=== PATIENT | female | born 1965 | race Caucasian/White ===

== ENCOUNTER 2016-06-18 22:04 | Emergency (ER) | payer OTHER ==
[~2016-06-18 22:04] MED LIST: ALPRAZOLAM1 MG PO; ESCITALOPRAM20 MG PO; FLUVIRIN 245 MCG/0.1 IM; METOPROLOL SUC100 MG PO; ZOLPIDEM TARTRA10 MG PO
--- NOTE | 2016-06-18 22:17 | ED PSYCHIATRIC COMPLAINT ---
History of Present Illness General Chief Complaint: ETOH/Drug Related Complaint Stated Complaint: BIBA FOR ETOH Source: patient Exam Limitations: intoxication Vital Signs & Intake/Output Vital Signs & Intake/Output Vital Signs Date Time Temp Pulse Resp B/P Pulse O2 O2 Flow FiO2 Ox Delivery Rate 06/18 2325 97.5 84 18 158/77 99 Room Air 06/18 2320 100 Room Air Allergies Coded Allergies: NO KNOWN ALLERGIES (NO) (07/14/10) Reconcile Medications Alprazolam 1 MG TABLET 1 TAB PO BID PRN ANXIETY (Reported) Escitalopram Oxalate 20 MG TABLET 1 TAB PO DAILY ANXIETY/DEPRESSION (Reported ) FLU VACCINE [id number](4YR+)/PF (Fluvirin [id number] Syringe) 45 MCG (15 MCG X 3)/ 0.5 ML SYRINGE 0.5 ML IM ONCE VACCINE (Reported) Metoprolol Succinate 100 MG TAB.ER.24H 1 TAB PO DAILY BP (Reported) Zolpidem Tartrate 10 MG TAB 1 TAB PO QPM PRN SLEEP (Reported) Triage Nurses Notes Reviewed? yes HPI: Patient presents for evaluation of alcohol intoxication. Patient states that somebody at a [employer] called the police because they were concerned about her level of intoxication. The patient has no complaint currently. Unfortunately, she is under the influence of alcohol, and is a bit sarcastic and history taking has been challenging. Past History Travel History Traveled to [place] past 21 day No Medical History Any Pertinent Medical History? see below for history Surgical History Surgical History: non-contributory Psychosocial History Who do you live with Patient/Self What is your primary language Upper Sorbian Family History Hx Contributory? No Review of Systems Review of Systems Constitutional: Reports: no symptoms. EENTM: Reports: no symptoms. Respiratory: Reports: no symptoms. Cardiovascular: Reports: no symptoms. GI: Reports: no symptoms. Genitourinary: Reports: no symptoms. Musculoskeletal: Reports: no symptoms. Skin: Reports: no symptoms. Neurological/Psychological: Reports: no symptoms. Hematologic/Endocrine: Reports: no symptoms. Immunologic/Allergic: Reports: no symptoms. All Other Systems: Reviewed and Negative Physical Exam Physical Exam General Appearance: see below Neurological/Psychiatric: see below Comments: General: Alert, calm, cooperative, EtOH like odor, appears clinically intoxicated Head: Normocephalic, atraumatic Eyes: Normal inspection, no nystagmus, EOMI Ears: Normal inspection Nose: Normal inspection Throat: Moist mucosa Neck: Supple, no goiter Heart: Regular rate and rhythm, no murmurs rubs or gallops Lungs: Clear to auscultation bilaterally with good air entry Abdomen: Soft nontender nondistended, normal bowel sounds Chest: Nontender Extremities: Normal range of motion grossly, mild tremors present, no cyanosis clubbing or edema of the upper extremities Neurologic: cranial nerves II through XII grossly intact, speech slurred, gait unsteady Psychiatric: No apparent delusions or hallucinations, no pressured speech or thought blocking SAD PERSONS Done? patient not suicidal Progress Differential Diagnosis: drug intoxication Plan of Care: Orders Procedure Date/time Status Continuous Observation Monitor 06/19 0000 Active Departure Departure Disposition: HOME OR SELF CARE Condition: Stable Clinical Impression Primary Impression: Alcohol intoxication Qualifiers: Complication of substance-induced condition: uncomplicated Qualified Code: F10.120 - Alcohol abuse with intoxication, uncomplicated Referrals: JULIA AGUILERA,EZRA Additional Instructions: Try to cut down on your alcohol intake. Follow-up with a detox program or your primary care physician this week. Return if any concerns or sudden worsening. Departure Forms: Customer Survey General Discharge Information
[2016-06-19 06:59] VITALS: BP 143/78
== END 2016-06-19 07:32 ==
LOC: ERH 22:04
DX: F10.129 Alcohol abuse with intoxication, unspecified (principal)

== ENCOUNTER 2017-06-11 20:10 | Emergency (ER) | payer OTHER ==
--- NOTE | 2017-06-11 20:18 | ED PSYCHIATRIC COMPLAINT ---
History of Present Illness General Chief Complaint: ETOH/Drug Related Complaint Stated Complaint: ETOH Source: patient, EMS, police Exam Limitations: no limitations Vital Signs & Intake/Output Vital Signs & Intake/Output Vital Signs Date Time Temp Pulse Resp B/P B/P Pulse O2 O2 Flow FiO2 Mean Ox Delivery Rate 06/12 1249 98.0 78 20 145/72 98 Room Air 06/12 1049 97.2 82 18 162/83 99 06/12 0751 96.7 85 18 160/83 96 06/12 0546 98.6 81 16 140/79 95 Room Air 06/12 0321 97.4 80 18 124/68 95 Room Air 06/11 2322 97.1 80 18 150/80 98 Room Air 06/11 2134 96 Room Air 06/11 2030 97.5 103 16 139/66 97 Room Air ED Intake and Output 06/12 0000 06/11 1200 Intake Total 100 Output Total Balance 100 Intake, Oral 100 Allergies Coded Allergies: NO KNOWN ALLERGIES (NO) (07/14/10) Reconcile Medications Alprazolam 1 MG TABLET 1 TAB PO BID PRN ANXIETY (Reported) Escitalopram Oxalate 20 MG TABLET 1 TAB PO DAILY ANXIETY/DEPRESSION (Reported ) FLU VACCINE [id number](4YR+)/PF (Fluvirin [id number] Syringe) 45 MCG (15 MCG X 3)/ 0.5 ML SYRINGE 0.5 ML IM ONCE VACCINE (Reported) Metoprolol Succinate 100 MG TAB.ER.24H 1 TAB PO DAILY BP (Reported) Zolpidem Tartrate 10 MG TAB 1 TAB PO QPM PRN SLEEP (Reported) Triage Nurses Notes Reviewed? yes Onset: Gradual Duration: day(s): Timing: recent history Severity: moderate Associated Symptoms: anxiety, suicidal ideation HPI: 51 yo woman on a police peer presents with tearfulness in the context of drinking "30 drinks tonight... and I took 14 extra ambien's." She denies active suicidality but reports grieving over her "who is an asshole." She denies HI/seizures. (Fabi AGUILERA,Robert Osullivan) Past History Travel History Traveled to [place] past 21 day No Medical History Any Pertinent Medical History? see below for history Neurological: NONE EENT: NONE Cardiovascular: NONE Respiratory: NONE Gastrointestinal: GERD Hepatic: NONE Renal: NONE Musculoskeletal: NONE Psychiatric: anxiety Endocrine: NONE Surgical History Surgical History: non-contributory Psychosocial History Who do you live with Patient/Self What is your primary language Lao Family History Hx Contributory? No (Fabi AGUILERA,Robert Osullivan) Review of Systems Review of Systems Constitutional: Reports: no symptoms. EENTM: Reports: no symptoms. Respiratory: Reports: no symptoms. Cardiovascular: Reports: no symptoms. GI: Reports: no symptoms. Genitourinary: Reports: no symptoms. Musculoskeletal: Reports: no symptoms. Skin: Reports: no symptoms. Neurological/Psychological: Reports: no symptoms. Hematologic/Endocrine: Reports: no symptoms. Immunologic/Allergic: Reports: no symptoms. All Other Systems: Reviewed and Negative (Fabi AGUILERA,Robert Osullivan) Physical Exam Physical Exam General Appearance: well developed/nourished, mild distress Head: atraumatic Eyes: Bilateral: normal appearance. Ears, Nose, Throat: normal pharynx, normal ENT inspection, hearing grossly normal Neck: normal inspection, supple Respiratory: normal breath sounds Cardiovascular: regular rate/rhythm Gastrointestinal: soft, non-tender Extremities: normal range of motion Neurological/Psychiatric: no motor/sensory deficits, awake, agitated Appearance/Memory/Insight: disheveled, impaired insight Behavoir/Eye Contact/Speech: slurred speech Thoughts/Hallucinations: no apparent hallucination Skin: intact, normal color, warm/dry SAD PERSONS SAD PERSONS Response Value Age <19 or >45 years? yes 1 Depression/Hopelessness? yes 2 Excessive Ethanol/Drug Use? yes 1 Rational Thinking Loss? yes 2 Social Support? has no support 1 Total 7 SAD PERSONS Done? yes (Fabi AGUILERA,Robert Osullivan) Progress Differential Diagnosis: drug intoxication, depression Plan of Care: Orders Procedure Date/time Status Heart Healthy Diet 06/12 B Active Continuous Observation Monitor 06/12 1900 Active Continuous Observation Monitor 06/12 1500 Active Continuous Observation Monitor 06/12 1100 Active Continuous Observation Monitor 06/12 0700 Active Continuous Observation Monitor 06/12 0458 Active ED CRISIS PSYCH CONSULT 06/12 0458 Active EKG 06/12 2215 Active Add-on Test (ER Only) 06/11 2214 Active URINE DRUGS OF ABUSE 06/11 2105 Complete URINALYSIS 06/11 2105 Complete ETHANOL 06/11 2105 Complete COMPREHENSIVE METABOLIC PANEL 06/11 2105 Complete CBC WITHOUT DIFFERENTIAL 06/11 2105 Complete ACETOMINOPHEN 03/24 2100 Complete SALICYLATE 06/11 2099 Complete Laboratory Tests 06/11/172123: Urine Opiates Screen < 100, Methadone Screen 43, Barbiturate Screen < 60, Ur Phencyclidine Scrn < 6.00, Amphetamines Screen < 100, U Benzodiazepines Scrn 300 H, Urine Cocaine Screen < 50, Urine Cannabis Screen < 5.00, Urinalysis LIGHT H , Urine Color YEL, Urine Clarity HAZY H, Urine pH 6.5, Ur Specific [place] <= 1.005, Urine Protein NEG, Urine Ketones NEG, Urine Nitrite NEG, Urine Bilirubin NEG, Urine Urobilinogen 0.2, Ur Leukocyte Esterase NEG, Ur Microscopic SEDIMENT EXAMINED, Urine RBC 3-5, Urine WBC RARE, Ur Epithelial Cells PACKD H, Urine Hemoglobin LARGE H, Urine Glucose NEG 06/11/172099: Anion Gap 17 H, Estimated GFR > 60, BUN/Creatinine Ratio 12.5, Glucose 105 H, Calcium 10.0, Total Bilirubin 0.5, AST 26, ALT 22, Alkaline Phosphatase 73, Total Protein 6.9, Albumin 4.0, Globulin 2.9, Albumin/Globulin Ratio 1.4, CBC w Diff NO MAN DIFF REQ, RBC 4.54, MCV 93.0, MCH 31.6 H, MCHC 34.0, RDW 13.2, MPV 9.4, Gran % 50.7, Lymphocytes % 39.5, Monocytes % 8.1, Eosinophils % 1.3, Basophils % 0.4, Absolute Granulocytes 4.4, Absolute Lymphocytes 3.4, Absolute Monocytes 0.7 H, Absolute Eosinophils 0.1, Absolute Basophils 0, Salicylates < 1.0, Acetaminophen < 10.0 L, Serum Alcohol 256.0 Initial ED EKG: nsr, nonspecific changes... no sig change from prior. Hand-Off Endorsed To: Aleksey De La Rosa MD Endorsed Time: 0700 Pending: consult (Fabi AGUILERA,Robert Osullivan) Comments: Cleared by psychiatry for discharge. (Aleksey De La Rosa MD) Departure Departure Condition: Stable Clinical Impression Primary Impression: Alcohol intoxication Secondary Impressions: Depression Referrals: Brandyn Flanagan MD (PCP/Family) (Robert Dunlap MD) Departure Time of Disposition: 1238 Disposition: HOME OR SELF CARE Additional Instructions: Follow up with the recommendations of the soap worker. Departure Forms: General Discharge Information (Rj AGUILERA,Aleksey)
[2017-06-11 21:31] LABS: ABSOLUTE BASOPHIL COUNT 0 /CUMM (0.0-0.2); ABSOLUTE EOSINOPHIL COUNT 0.1 /CUMM (0.0-0.7); ABSOLUTE GRANULOCYTE CT 4.4 /CUMM (1.4-6.5); ABSOLUTE LYMPH COUNT 3.4 /CUMM (1.2-3.4); ABSOLUTE MONOCYTE COUNT 0.7 /CUMM (0.10-0.60); BASOPHIL % 0.4 % (0.0-2.0); EOSINOPHIL % 1.3 % (0-5); GRANULOCYTE % 50.7 % (42.2-75.2); HEMATOCRIT 42.2 % (37-47); MEAN CORPUSCULAR HGB 31.6 PG (27.0-31.0); MEAN PLATELET VOLUME 9.4 FL (7.4-10.4); PLATELET COUNT 322 /CUMM (130-400); RBC DISTRIBUTION WIDTH 13.2 % (11.5-14.5); RED BLOOD CELL CT 4.54 /CUMM (4.20-5.40); WHITE BLOOD CELL COUNT 8.7 /CUMM (4.8-10.8)
[2017-06-12 12:49] VITALS: BP 145/72
--- NOTE | 2017-06-12 15:42 | ED PSYCH CRISIS CONSULTATION ---
Crisis Consult Basic Assessment Date of Consult: 06/12/17 Responsible Person/Accompanied By: Patient arrived on a PEER Insurance Authorization: Insurance #1: Insurance name: LORRI NOBLE Phone number: Policy number: [id number] Group number: [id number] Authorization number: ED Provider: Patient's ED Provider: Aleksey De La Rosa MD Primary Care Physician: Patient's PCP: Brandyn Flanagan MD PCP's Current Psychiatrist: Cassidy Cueto MD Chief Complaint: ETOH/Drug Related Complaint Patient's Quote: "I know...I drank...my didnt come home and I was pissed." Present Illness: Patient brought to ED on a PEER - police state she told EMS she "took pills" and drank "1/2 pint." PEER states "said she was not thinking of hurting self, just sad because her didnt come home." On arrival to ED, patient indicated she took some prescribed Ambien pills. However, today she denies taking any Ambien last night and attending physician reports there was no clinical indication of an overdose on sleep medication. Patient states she understands that alcohol use is contraindicated with Ambien medication. Patient has longstanding treatment of alcohol use disorder since at least 2005. Patient has had several episodes of detox and residential rehabilitation. The most recent episode was at the [facility] [address] in [place] around February 2017. Upon discharge, patient did maintain sobriety for a brief period and was attending AA meetings. Patient's friend Lizette and her Michael report patient relapsed a couple weeks ago. Patient's friend Lizette reports patient has made passive suicidal statements about a week ago in the context of marital conflict. Her reports he is "done" with the marriage and has been spending weekends away from home. reports patient was doing well until this most recent relapse. 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 She has utilized her employee assistance program before for support. Her mother is 85 years old and a support to her. Patient also reports her friend Lizette is supportive and is in fact taking care of her dog currently. Patient admits to drinking about ~5 shots of vodka. She reports she has been drinking intermittently over the past week. Patient denies current mental health treatment providers. Her ob-conductor orchestra Dr. Ashton is prescribing Ambien, Xanax and Lexopro for anxiety, depression, and insomnia. A C-SSRS [place] suicidality scale was administered. Patient denied suicidal behavior, suicidal ideation, activating events. She does have previous treatment history, clinical status and concern of substance use. Protective factors identied include reason for living, responsibility to family (mother), supportive family, fear of . Patient denies current suicidal ideation, intent or plan. Patient presents alert, oriented, and slightly anxious. She is motivated to seek outpatient treatment and continue with AA. Patient's Address: [address] [place] [address] Other Phone Number: Who Do You Live With? Patient/Self Family/Informants Interviewed: and friend Lizette Allergies - Coded Allergies: NO KNOWN ALLERGIES (NO) (07/14/10) Current Medications - Scheduled Medications Escitalopram Oxalate 20 MG TABLET 1 TAB PO DAILY ANXIETY/DEPRESSION #30 ( Reported) Entered as Reported by Nata Dominguez on 01/23/14 1523 FLU VACCINE [id number](4YR+)/PF (Fluvirin [id number] Syringe) 45 MCG (15 MCG X 3)/ 0.5 ML SYRINGE 0.5 ML IM ONCE VACCINE #0 (Reported) Entered as Reported by Nata Dominguez on 01/23/14 1522 Metoprolol Succinate 100 MG TAB.ER.24H 1 TAB PO DAILY BP #90 (Reported) Entered as Reported by Nata Dominguez on 01/23/14 1524 Scheduled PRN Medications Alprazolam 1 MG TABLET 1 TAB PO BID PRN ANXIETY #60 (Reported) Entered as Reported by Nata Dominguez on 01/23/14 1523 Zolpidem Tartrate 10 MG TAB 1 TAB PO QPM PRN SLEEP #30 (Reported) Entered as Reported by Nata Dominguez on 01/23/14 1522 Laboratory Results: Laboratory Tests 06/11/174: Urine Opiates Screen < 100, Methadone Screen 43, Barbiturate Screen < 60, Ur Phencyclidine Scrn < 6.00, Amphetamines Screen < 100, U Benzodiazepines Scrn 300 H, Urine Cocaine Screen < 50, Urine Cannabis Screen < 5.00, Urinalysis LIGHT H , Urine Color YEL, Urine Clarity HAZY H, Urine pH 6.5, Ur Specific [place] <= 1.005, Urine Protein NEG, Urine Ketones NEG, Urine Nitrite NEG, Urine Bilirubin NEG, Urine Urobilinogen 0.2, Ur Leukocyte Esterase NEG, Ur Microscopic SEDIMENT EXAMINED, Urine RBC 3-5, Urine WBC RARE, Ur Epithelial Cells PACKD H, Urine Hemoglobin LARGE H, Urine Glucose NEG 06/11/17 2100: Anion Gap 17 H, Estimated GFR > 60, BUN/Creatinine Ratio 12.5, Glucose 105 H, Calcium 10.0, Total Bilirubin 0.5, AST 26, ALT 22, Alkaline Phosphatase 73, Total Protein 6.9, Albumin 4.0, Globulin 2.9, Albumin/Globulin Ratio 1.4, CBC w Diff NO MAN DIFF REQ, RBC 4.54, MCV 93.0, MCH 31.6 H, MCHC 34.0, RDW 13.2, MPV 9.4, Gran % 50.7, Lymphocytes % 39.5, Monocytes % 8.1, Eosinophils % 1.3, Basophils % 0.4, Absolute Granulocytes 4.4, Absolute Lymphocytes 3.4, Absolute Monocytes 0.7 H, Absolute Eosinophils 0.1, Absolute Basophils 0, Salicylates < 1.0, Acetaminophen < 10.0 L, Serum Alcohol 256.0 Past History Past Medical History Neurological: NONE EENT: NONE Cardiovascular: NONE Respiratory: NONE Gastrointestinal: GERD Hepatic: NONE Renal: NONE Musculoskeletal: NONE Psychiatric: anxiety Endocrine: NONE Past Surgical History Surgical History: non-contributory Psychosocial History Strengths/Capabilities: Employed, supportive mother Physical Limitations (Interventions): Chronic alcholism Marital discord Psychiatric Treatment History Psych Treatment Psychiatric Treatment Yes Inpatient Treatment Yes Outpatient Treatment Yes Location of Treatment [facility] Reason for Treatment Alcohol detox of Treatment 2013 Response to Treatment Positive Diagnosis by History: Depressive disorder Alcohol use disorder Substance Use/Abuse History Drug Use/Abuse Substances Used/Abused Yes Substance Used/Abused Alcohol First Use Patient did not specify Last Used Yesterday How much used/taken ~5 shots of vodka How often Intermittent use in the past week For how long Longstanding alcohol abuse Route of use Ingestion Substance Abuse Treatment Substance Abuse Treatment Past Substance Abuse TX Yes Inpatient Treatment Yes Outpatient Treatment Yes Location of Treatment [facility] [address] is most recent residential rehab Reason for Treatment Alcohol use disorder Dates of Treatment Feb 2017 to Mar 2017 Response to Treatment Patient did achieve sobriety for a few weeks after discharge from rehab but this was not sustained. Comments: - Current Mental Status Mental Status Orientation: Person, Place, Situation Affect: Anxious Speech: WNL Neuro-vegetative: Anhedonia Appearance Appearance- Dress/Hygiene: Patient dressed in hospital attire with no remarkable features observed. Behaviors Thought Process: WNL Thought Content: WNL Memory: WNL Insight: Fair SI/HI Risk Assessment Past Suicidal Ideation/Attempts Yes (Suicidal statements/denies OD) Current Suicidal Ideation/Att No Past Homicidal Ideation/Att: No Current Homicidal Ideation/Attempts No Degree of Intent: None Risk Factors: substance abuse Lethality Ratin (mild) PTSD Checklist PTSD Done? patient declined ED Management Sitter: Yes Restraints: No DSM5/PS Stressors/Medical Prob Diagnosis' (DSM 5, Stressors, Medical): F10.20 Alcohol use disorder, Moderate F32.9 Unspecified depressive disorder F41.9 Unspecified anxiety disorder Z63.0: Problems in relationship with spouse Current GAF: 45 Comments: Marital discord Departure Disposition Psych Medical Clearance Date: 06/12/17 Medically Cleared at: 0900 Time Started: 0900 Time Ended: 1000 Psychiatrist Consulted: Cassidy Cueto MD Date Disposition Established: 06/12/17 Time Disposition Established: 1000 Plan for Disposition - Modality: Outpatient Facility: [facility] Follow-up Appt Date: 06/14/17 Follow-Up Appt Time: 1000 Contact: casualty underwriter Telephone: [phone] Rationale for Disposition: Crisis evaluation reviewed with Dr. Cueto. Patient is referred for an outpatient intake evaluation at [facility] psychiatry. Patient indicates she is motivated to attend this appointment for follow-up. Patient was advised to contact [phone] / [phone] for any crisis prior to appointment. Patient denies any high risk factors which would warrant further hold in the ED or consideration of an inpatient psychiatric admission. Patient denies current suicidality. Referrals Brandyn Flanagan MD (PCP/Family)
== END 2017-06-12 12:50 ==
LOC: ERH 20:10
PROVIDERS: Pediatrics
DX: F10.129 Alcohol abuse with intoxication, unspecified (principal); F32.9 Major depressive disorder, single episode, unspecified
CPT/HCPCS: 80307; 81001; G0463; G0480

== ENCOUNTER 2017-07-24 16:01 | Emergency (ER) | payer OTHER ==
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
[2017-07-24 17:30] LABS: ABSOLUTE BASOPHIL COUNT 0 /CUMM (0.0-0.2); ABSOLUTE EOSINOPHIL COUNT 0.2 /CUMM (0.0-0.7); ABSOLUTE GRANULOCYTE CT 2.5 /CUMM (1.4-6.5); ABSOLUTE LYMPH COUNT 2.7 /CUMM (1.2-3.4); ABSOLUTE MONOCYTE COUNT 0.4 /CUMM (0.10-0.60); BASOPHIL % 0.8 % (0.0-2.0); EOSINOPHIL % 3.1 % (0-5); GRANULOCYTE % 43.3 % (42.2-75.2); HEMATOCRIT 41.3 % (37-47); MEAN CORPUSCULAR HGB 31.4 PG (27.0-31.0); MEAN CORPUSCULAR HGB CONC 33.9 G/DL (33.0-37.0); MEAN CORPUSCULAR VOLUME 92.7 FL (81.0-99.0); MEAN PLATELET VOLUME 8.4 FL (7.4-10.4); PLATELET COUNT 308 /CUMM (130-400); RBC DISTRIBUTION WIDTH 13.1 % (11.5-14.5); RED BLOOD CELL CT 4.46 /CUMM (4.20-5.40); WHITE BLOOD CELL COUNT 5.9 /CUMM (4.8-10.8)
--- NOTE | 2017-07-24 21:27 | CT SCAN REPORT ---
EXAMINATION: CT HEAD WITHOUT CONTRAST CT MAXILLOFACIAL WITHOUT CONTRAST CT CERVICAL SPINE WITHOUT CONTRAST CLINICAL INFORMATION: Head injury and trauma. Fall. COMPARISON: Prior CT scans 11/01/2013. TECHNIQUE: Axial images of the head, maxillofacial region, and cervical spine were obtained without contrast. Reformatted images were reviewed. DLP: 1496 mGy-cm FINDINGS: HEAD CT: No intracranial hemorrhage or territorial infarction. No extra-axial fluid collection. No mass effect or midline shift. No hydrocephalus. No new significant abnormal attenuation within the brain parenchyma. No calvarial fracture. Mastoid air cells are aerated. No significant subgaleal hematoma. FACIAL CT: There is a left nasal bone fracture with minimal displacement on axial image 167/245 (series 12). No other discrete facial fracture. The paranasal sinuses are aerated. No evidence of traumatic orbital injury. Right maxillary hardware is noted. CERVICAL SPINE CT: No acute fracture or dislocation. No evidence of traumatic spondylolisthesis. No prevertebral soft tissue swelling. No widening of the atlantoaxial interval. Degenerative endplate changes are worst at C5-C6. Multilevel facet arthropathy. Evidence of remote posterior right 2nd rib fracture and anterior right 1st rib fracture. IMPRESSION: 1. No acute intracranial pathology. 2. Left nasal bone fracture with very minimal displacement on the left. 3. No acute cervical spine pathology. 4. Non-acute findings as above.
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
[2017-07-25 11:31] VITALS: BP 132/69
[2017-11-25] MEDS ORDERED: ATIVAN1 M1 PO (05:56)
== END 2017-07-25 11:32 ==
LOC: ERH 16:01
PROVIDERS: Emergency Medicine
DX: F14.10 Cocaine abuse, uncomplicated (principal); F10.121 Alcohol abuse with intoxication delirium; F13.20 Sedative, hypnotic or anxiolytic dependence, uncomplicated; S02.2XXA Fracture of nasal bones, initial encounter for closed fracture; X58.XXXA Exposure to other specified factors, initial encounter; Y93.9 Activity, unspecified; Y92.9 Unspecified place or not applicable
CPT/HCPCS: 80307; 93005; 93010; G0463; G0480

== ENCOUNTER 2017-08-05 22:21 | Emergency (ER) | payer OTHER ==
[~2017-08-05] VITALS: Ht 160 cm; Wt 59.0 kg
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
[2017-08-06 03:32] LABS: ABSOLUTE BASOPHIL COUNT 0 /CUMM (0.0-0.2); ABSOLUTE EOSINOPHIL COUNT 0 /CUMM (0.0-0.7); ABSOLUTE GRANULOCYTE CT 6.2 /CUMM (1.4-6.5); ABSOLUTE LYMPH COUNT 2.1 /CUMM (1.2-3.4); ABSOLUTE MONOCYTE COUNT 0.4 /CUMM (0.10-0.60); BASOPHIL % 0.3 % (0.0-2.0); EOSINOPHIL % 0.3 % (0-5); HEMATOCRIT 39.7 % (37-47); MEAN CORPUSCULAR HGB 31.9 PG (27.0-31.0); MEAN CORPUSCULAR HGB CONC 33.9 G/DL (33.0-37.0); MEAN CORPUSCULAR VOLUME 94.1 FL (81.0-99.0); MEAN PLATELET VOLUME 8.3 FL (7.4-10.4); PLATELET COUNT 305 /CUMM (130-400); RBC DISTRIBUTION WIDTH 13.9 % (11.5-14.5); RED BLOOD CELL CT 4.22 /CUMM (4.20-5.40); WHITE BLOOD CELL COUNT 8.8 /CUMM (4.8-10.8)
[2017-08-06 03:40] LABS: GRANULOCYTE % 70.2 % (42.2-75.2)
[2017-08-06 06:42] VITALS: BP 126/76
== END 2017-08-06 10:25 ==
LOC: ERH 22:21
PROVIDERS: Emergency Medicine
DX: F10.129 Alcohol abuse with intoxication, unspecified (principal)
CPT/HCPCS: 80307; 81001; G0480; J3101

== ENCOUNTER 2017-12-14 20:24 | Emergency (ER) | payer OTHER ==
[~2017-12-14 20:24] MED LIST changes: +ATIVAN1 M1 PO
--- NOTE | 2017-12-14 20:33 | ED GENERAL ADULT ---
History of Present Illness General Chief Complaint: ETOH/Drug Related Complaint Stated Complaint: PT DETOX Source: patient, old records Exam Limitations: intoxication Vital Signs & Intake/Output Vital Signs & Intake/Output Vital Signs Date Time Temp Pulse Resp B/P B/P Pulse O2 O2 Flow FiO2 Mean Ox Delivery Rate 12/15 0234 84 18 126/68 12/15 0234 84 18 126/68 96 Room Air 12/15 0034 98.0 95 18 110/58 12/14 2234 98.0 94 18 110/58 12/14 2222 98.0 94 18 110/58 95 12/14 2040 98.5 100 17 151/88 12/14 2030 98.5 101 17 151/88 96 Room Air Allergies Coded Allergies: NO KNOWN ALLERGIES (NO) (07/14/10) Reconcile Medications Alprazolam 1 MG TABLET 1 TAB PO BID PRN ANXIETY (Reported) Escitalopram Oxalate 20 MG TABLET 1 TAB PO DAILY ANXIETY/DEPRESSION (Reported ) FLU VACCINE [id number](4YR+)/PF (Fluvirin [id number] Syringe) 45 MCG (15 MCG X 3)/ 0.5 ML SYRINGE 0.5 ML IM ONCE VACCINE (Reported) LORazepam (Ativan) 1 MG TAB 1 TAB PO TID PRN anxiety Metoprolol Succinate 100 MG TAB.ER.24H 1 TAB PO DAILY BP (Reported) Zolpidem Tartrate 10 MG TAB 1 TAB PO QPM PRN SLEEP (Reported) Triage Note: PT TO ED SEEKING DETOX FROM ALCOHOL. STATES DRINK A PINT A DAY. CURRENTLY INTOXICATED, CRYING IN TRIAGE. DENIES SI/HI. Triage Nurses Notes Reviewed? yes HPI: Patient presents to the emergency department requesting alcohol detox. Patient denies any suicidal or homicidal ideations however she is very tearful. Patient is not very forthcoming with answers. Patient not answering how much she drinks however she does state that she has never had any seizures in the past. Past History Travel History Traveled to [place] past 21 day No Medical History Any Pertinent Medical History? 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 No Review of Systems Review of Systems Constitutional: Reports: no symptoms. EENTM: Reports: no symptoms. Respiratory: Reports: no symptoms. Cardiovascular: Reports: no symptoms. GI: Reports: no symptoms. Genitourinary: Reports: no symptoms. Musculoskeletal: Reports: no symptoms. Skin: Reports: no symptoms. Neurological/Psychological: Reports: no symptoms. Hematologic/Endocrine: Reports: no symptoms. Immunologic/Allergic: Reports: no symptoms. All Other Systems: Reviewed and Negative Physical Exam Physical Exam General Appearance: well developed/nourished, alert, awake, anxious, intoxicated Head: atraumatic, normal appearance Eyes: Bilateral: PERRL, EOMI. Ears, Nose, Throat: normal pharynx, normal ENT inspection, hearing grossly normal Neck: normal inspection, supple Respiratory: normal breath sounds, chest non-tender, no respiratory distress, lungs clear Cardiovascular: regular rate/rhythm, normal peripheral pulses Gastrointestinal: normal bowel sounds, soft, non-tender, no organomegaly Back: normal inspection, normal range of motion Extremities: normal inspection, normal capillary refill, normal range of motion, no edema Neurologic/Psych: no motor/sensory deficits, awake, alert, oriented x 3, normal gait, normal mood/affect Skin: intact, normal color, warm/dry Lymphatic: no anterior cervical trevor Core Measures ACS in differential dx? No CVA/TIA Diagnosis: No Sepsis Present: No Sepsis Focused Exam Completed? No Progress Differential Diagnoses I considered the following diagnoses in my evaluation of the patient: [Alcohol intoxication, coingestion, depression, electrolyte abnormality] Plan of Care: Orders Procedure Date/time Status Regular Diet 12/15 B Active Continuous Observation Monitor 12/15 2211 Active CIWA 12/15 2031 Active MAGNESIUM 12/15 2031 Complete ETHANOL 12/15 2031 Complete COMPREHENSIVE METABOLIC PANEL 12/15 2031 Complete CBC WITHOUT DIFFERENTIAL 12/15 2031 Complete Laboratory Tests 12/14/172054: Anion Gap 12, Estimated GFR > 60, BUN/Creatinine Ratio 18.8, Glucose 89, Calcium 9.2, Magnesium 1.7, Total Bilirubin 0.4, AST 29, ALT 24, Alkaline Phosphatase 54 , Total Protein 6.3, Albumin 4.0, Globulin 2.3, Albumin/Globulin Ratio 1.7, CBC w Diff NO MAN DIFF REQ, RBC 4.08 L, MCV 96.2, MCH 33.0 H, MCHC 34.3, RDW 14.0, MPV 8.3, Gran % 44.8, Lymphocytes % 47.3, Monocytes % 5.3, Eosinophils % 1.9, Basophils % 0.7, Absolute Granulocytes 3.9, Absolute Lymphocytes 4.1 H, Absolute Monocytes 0.5, Absolute Eosinophils 0.2, Absolute Basophils 0.1, Serum Alcohol 229.0 12/14/172031: Methadone Screen Cancelled, Barbiturate Screen Cancelled, Ur Phencyclidine Scrn Cancelled, Amphetamines Screen Cancelled, U Benzodiazepines Scrn Cancelled, Urine Cocaine Screen Cancelled, Urine Cannabis Screen Cancelled Initial ED EKG: none Comments: 12/15/17, 0615: Patient is awake alert and oriented 3. She walks with a steady gait and there is no slurring to her words. Patient wants to go home. Patient denies any suicidal or homicidal ideations. Patient is competent to make her own decisions. Patient has been given a list of detox facilities. Departure Departure Disposition: HOME OR SELF CARE Condition: Stable Clinical Impression Primary Impression: Alcohol abuse Referrals: Brandyn Flanagan MD (PCP/Family) Additional Instructions: FOLLOW UP WITH A DETOX/REHAB FACILITY RETURN FOR ANY CONCERNS Departure Forms: Customer Survey General Discharge Information Critical Care Note Critical Care Note Critical Care Time: non-applicable
[2017-12-14 21:26] LABS: ABSOLUTE BASOPHIL COUNT 0.1 /CUMM (0.0-0.2); ABSOLUTE EOSINOPHIL COUNT 0.2 /CUMM (0.0-0.7); ABSOLUTE GRANULOCYTE CT 3.9 /CUMM (1.4-6.5); ABSOLUTE LYMPH COUNT 4.1 /CUMM (1.2-3.4); ABSOLUTE MONOCYTE COUNT 0.5 /CUMM (0.10-0.60); BASOPHIL % 0.7 % (0.0-2.0); EOSINOPHIL % 1.9 % (0-5); GRANULOCYTE % 44.8 % (42.2-75.2); HEMATOCRIT 39.3 % (37-47); MEAN CORPUSCULAR HGB CONC 34.3 G/DL (33.0-37.0); MEAN CORPUSCULAR VOLUME 96.2 FL (81.0-99.0); MEAN PLATELET VOLUME 8.3 FL (7.4-10.4); PLATELET COUNT 347 /CUMM (130-400); RED BLOOD CELL CT 4.08 /CUMM (4.20-5.40); WHITE BLOOD CELL COUNT 8.6 /CUMM (4.8-10.8)
[2017-12-15 06:20] VITALS: BP 143/81
== END 2017-12-15 06:28 ==
LOC: ERH 20:24
PROVIDERS: Physician Assistant
DX: F10.10 Alcohol abuse, uncomplicated (principal); F41.9 Anxiety disorder, unspecified
CPT/HCPCS: 80307; G0480